=== PATIENT | male | born 1980 | race Caucasian/White ===

== ENCOUNTER → 2021-01-19 | Outpatient (CLI) | payer BC ==
--- NOTE | 2021-01-19 10:02 | Diagnostic Imaging Report ---
INDICATION: Pain. 2 views were obtained. FINDINGS: The alignment is normal. No fracture or dislocation. Left lung is clear. Soft tissues are unremarkable. IMPRESSION: No focal abnormality left shoulder. Dictated by: Dictated on workstation # [id number]
--- NOTE | 2021-01-19 10:02 | Diagnostic Imaging Report ---
INDICATION: Tingling in left arm. 3 views were obtained. FINDINGS: The alignment of the cervical spine is normal. The vertebral body heights well-maintained. Mild lower cervical degenerative disc disease. No fracture or traumatic subluxation. Odontoids intact. Lateral masses well aligned. Prevertebral soft tissues are within normal limits. IMPRESSION: Mild lower cervical spondylosis, otherwise unremarkable. Dictated by: Dictated on workstation # [id number]
== END ==
LOC: RAD FS 09:10
PROVIDERS: ATTEND Nurse Practitioner Family
DX: M47.812 Spondylosis without myelopathy or radiculopathy, cervical region (principal); M62.838 Other muscle spasm; Z87.828 Personal history of other (healed) physical injury and trauma; Z87.81 Personal history of (healed) traumatic fracture
CPT/HCPCS: 72040; 73030

== ENCOUNTER 2021-07-23 09:00 | Emergency (ER) | payer BC ==
[~2021-07-23] VITALS: Ht 177 cm; Wt 102.0 kg
[2021-07-23 09:37] LABS: HEMATOCRIT 42 % (40-54); HEMOGLOBIN 14.3 g/dL (13.3-17.7); MEAN CORPUSCULAR HEMOGLOBIN 32 pg (25-34); MEAN CORPUSCULAR HGB CONC 34 g/dL (32-36); MEAN CORPUSCULAR VOLUME 93 fL (80-99); WHITE BLOOD COUNT 6.1 10^3/uL (4.3-11.0)
[2021-07-23 09:38] LABS: BASOPHILS % (AUTO) 0 % (0-10); EOSINOPHILS % (AUTO) 0 % (0-10); LYMPHOCYTES # (AUTO) 0.8 X 10^3 (1.0-4.0); LYMPHOCYTES % (AUTO) 13 % (12-44); MEAN PLATELET VOLUME 11.3 fL (9.0-12.2); MONOCYTES # (AUTO) 0.2 X 10^3 (0.0-1.0); MONOCYTES % (AUTO) 3 % (0-12); NEUTROPHILS # (AUTO) 5.1 X 10^3 (1.8-7.8); NEUTROPHILS % (AUTO) 83 % (42-75); PLATELET COUNT 121 10^3/uL (130-400)
--- NOTE | 2021-07-23 09:41 | ED Cough/URI ---
General Chief Complaint: COVID19 Suspect/Confirmed Stated Complaint: SOB; COVID+ History of Present Illness Date Seen by Provider: Jul 23, 2021 Time Seen by Provider: 09:10 Initial Comments 4-year-old male presents with shortness of air. Recently diagnosed with COVID- 19 for symptoms that began 4 days ago. Patient primarily with a cough and some shortness of air. His oxygen saturations he states drop on his home monitoring when he is at rest or coughing or lying down. When up and awake states they are in the low 90s. Patient without any significant past medical history. Saw his PCP recently started on steroids as well as azithromycin. Yesterday received MONOCLONOL AB treatment Allergies and Home Medications Allergies Coded Allergies: No Known Drug Allergies (Unverified , 07/23/21) Patient Home Medication List Home Medication List Reviewed: Yes Colchicine (Colchicine) 0.6 Mg Tablet, 0.6 MG PO BID Prescribed by: TIMMY SHEFFIELD on 07/23/21 1006 Fluticasone Propionate (Flovent Hfa 220 mcg) 1 Ea Aero, 2 EA IH BID Prescribed by: TIMMY SHEFFIELD on 07/23/21 1006 Prednisone (Prednisone) 50 Mg Tab, 50 MG PO DAILY Prescribed by: TIMMY LOZASTSARAH on 07/23/21 1006 Review of Systems Review of Systems Constitutional: No chills, No fever; malaise EENTM: nose congestion; No ear pain, No hoarseness Respiratory: cough, short of breath; No wheezing Cardiovascular: No chest pain, No edema, No palpitations Gastrointestinal: No abdominal pain, No nausea, No vomiting Musculoskeletal: No joint swelling, No muscle pain Skin: No change in color, No rash Psychiatric/Neurological: Denies Headache, Denies Weakness Past Mnnajya-Stkaay-Tfkgzo Hx Patient Social History Tobacco Use?: No Use of E-Cig and/or Vaping dev: No Substance use?: No Alcohol Use?: Yes Alcohol type: Beer Alcohol Frequency: Once in a while Pt feels they are or have been: No Physical Exam Vital Signs - First Documented 07/23/21 09:12 Temp 36.2 Pulse 97 Resp 18 B/P (MAP) 134/76 (95) Pulse Ox 91 O2 Delivery Room Air Capillary Refill : Height: '" Weight: lbs. oz. kg; BMI Method: General Appearance: WD/WN, no apparent distress HEENT: PERRL/EOMI, normal ENT inspection Respiratory: chest non-tender, lungs clear, normal breath sounds, no accessory muscle use Cardiovascular: regular rate, rhythm, no edema, no JVD Gastrointestinal: non tender, soft Extremities: non-tender, normal inspection Neurologic/Psychiatric: alert, oriented x 3 Skin: normal color, warm/dry Focused Exam Lactate Level 07/23/21 09:24: Lactic Acid Level 0.99 Lactic Acid Level Laboratory Tests Test 07/23/21 09:24 Lactic Acid Level 0.99 MMOL/L (0.50-2.00) Progress/Results/Core Measures Suspected Sepsis SIRS Temperature: Pulse: Respiratory Rate: Laboratory Tests 07/23/21 09:24: White Blood Count 6.1 Blood Pressure / Mean: 07/23/21 09:24: Lactic Acid Level 0.99 Laboratory Tests 07/23/21 09:24: Creatinine 1.04, Platelet Count 121L, Total Bilirubin 0.5 Results/Orders Lab Results Laboratory Tests Test 07/23/21 09:24 Range/Units White Blood Count 6.1 4.3-11.0 10^3/uL Red Blood Count 4.51 4.30-5.52 10^6/uL Hemoglobin 14.3 13.3-17.7 g/dL Hematocrit 42 40-54 % Mean Corpuscular Volume 93 80-99 fL Mean Corpuscular Hemoglobin 32 25-34 pg Mean Corpuscular Hemoglobin Concent 34 32-36 g/dL Red Cell Distribution Width 13.3 10.0-14.5 % Platelet Count 121 L 130-400 10^3/uL Mean Platelet Volume 11.3 9.0-12.2 fL Immature Granulocyte % (Auto) 1 % Neutrophils (%) (Auto) 83 H 42-75 % Lymphocytes (%) (Auto) 13 12-44 % Monocytes (%) (Auto) 3 0-12 % Eosinophils (%) (Auto) 0 0-10 % Basophils (%) (Auto) 0 0-10 % Neutrophils # (Auto) 5.1 1.8-7.8 X 10^3 Lymphocytes # (Auto) 0.8 L 1.0-4.0 X 10^3 Monocytes # (Auto) 0.2 0.0-1.0 X 10^3 Eosinophils # (Auto) 0.0 0.0-0.3 10^3/uL Basophils # (Auto) 0.0 0.0-0.1 10^3/uL Immature Granulocyte # (Auto) 0.0 0.0-0.1 10^3/uL Percent Immature Platelet Fraction 5.2 0.0-7.6 % Sodium Level 135 135-145 MMOL/L Potassium Level 3.8 3.6-5.0 MMOL/L Chloride Level 99 98-107 MMOL/L Carbon Dioxide Level 25 21-32 MMOL/L Anion Gap 11 5-14 MMOL/L Blood Urea Nitrogen 18 7-18 MG/DL Creatinine 1.04 0.60-1.30 MG/DL Estimat Glomerular Filtration Rate 79 BUN/Creatinine Ratio 17 Glucose Level 104 70-105 MG/DL Lactic Acid Level 0.99 0.50-2.00 MMOL/L Calcium Level 8.5 8.5-10.1 MG/DL Corrected Calcium 8.9 8.5-10.1 MG/DL Total Bilirubin 0.5 0.1-1.0 MG/DL Aspartate Amino Transf (AST/SGOT) 44 H 5-34 U/L Alanine Aminotransferase (ALT/SGPT) 29 0-55 U/L Alkaline Phosphatase 60 40-136 U/L C-Reactive Protein 6.91 H <0.50 MG/DL Total Protein 6.5 6.4-8.2 GM/DL Albumin 3.5 3.2-4.5 GM/DL My Orders Orders - ROVENSTINE,TIMMY L DO Ed Iv/Invasive Line Start (07/23/21 09:21) Cbc With Automated Diff (07/23/21 09:21) Comprehensive Metabolic Panel (07/23/21 09:21) Crp Fs (07/23/21 09:21) Chest 1 View Ap/Pa Only (07/23/21 09:21) Ekg Tracing (07/23/21 09:21) Lactic Acid Analyzer (07/23/21 09:21) Albuterol/Ipra Inhalation Soln (Duoneb I (07/23/21 09:50) Albuterol/Ipra Inhalation Soln (Duoneb I (07/23/21 10:00) Methylprednisolone Sod Succ (Solu-Medrol (07/23/21 10:00) Svn Small Volume Nebulizer (07/23/21 09:54) Medications Given in ED Current Medications Medications Dose Ordered Sig/Jabari Route Start Time Stop Time Status Last Admin Dose Admin Albuterol/ Ipratropium 3 ml ONCE ONCE INH 07/23/21 10:00 07/23/21 10:01 DC 07/23/21 09:55 3 ML Methylprednisolone Sodium Succinate 125 mg ONCE ONCE IVP 07/23/21 10:00 07/23/21 10:01 DC 07/23/21 09:57 125 MG Vital Signs/I&O 07/23/21 07/23/21 09:12 09:12 Temp 36.2 Pulse 97 Resp 18 B/P (MAP) 134/76 (95) Pulse Ox 91 O2 Delivery Room Air Room Air Capillary Refill : ECG Initial ECG Impression Date: Jul 23, 2021 Initial ECG Impression Time: 09:15 Initial ECG Rate: 90 Initial ECG Rhythm: Normal Sinus Initial ECG Intervals: Normal Initial ECG Impression: Normal Diagnostic Imaging Diagonstic Imaging: Xray Plain Films/CT/US/NM/MRI: chest Comments Date of Exam:07/23/21 CHEST 1 VIEW AP/PA ONLY Clinical indication: Patient with shortness of breath. Patient is Covid positive. Exam: Portable chest x-ray upright view. Comparisons: None. Findings: Lungs/pleura: There are patchy areas of consolidation throughout both lungs. There is no pneumothorax. There is no pleural effusion. Mediastinum: Unremarkable. Pulmonary vasculature: Unremarkable. Heart: Unremarkable. Bones/extrathoracic soft tissue: Unremarkable. Impression: Diffuse bilateral lung infiltrates concerning for pneumonia. Dictated on workstation # [id number] Dict: 07/23/2134 Trans: 07/23/21 0940 REPLACED BY [facility] [id number] Interpreted by: LISSET HORN MD Electronically signed by: Departure Impression Primary Impression: Pneumonia due to COVID-19 virus Disposition: 01 HOME, SELF-CARE Condition: Stable Departure-Patient Inst. Decision time for Depature: 09:44 Referrals: FILIBERTO HINDS MD (PCP/Family) Primary Care Physician Patient Instructions: COVID-19 Overview Add. Discharge Instructions: follow up with Dr Hinds in 3 to 4 days, ER sooner if worse. Take the following: for 1 month Vitamin D - 5,000 iu daily Vitamin C - 1,000mg 3 times daily Zinc 100mg daily Melatonin 10mg at bedtime and if no contraindication, take a full aspirin for the next 30 days All discharge instructions reviewed with patient and/or family. Voiced understanding. Scripts Colchicine (Colchicine) 0.6 Mg Tablet 0.6 MG PO BID, #20 TAB Prov: TIMMY SHEFFIELD DO 07/23/21 Prednisone (Prednisone) 50 Mg Tab 50 MG PO DAILY, #8 TAB take one po @ 1400 today, take one po 0800 & 1400 tomorrow, then take one po daily....tat Prov: TIMMY SHEFFIELD DO 07/23/21 Fluticasone Propionate (Flovent Hfa 220 mcg) 1 Ea Aero 2 EA IH BID, #1 EA Prov: TIMMY SHEFFIELD DO 07/23/21 TIMMY SHEFFIELD DO Jul 23, 2021 09:41
[2021-07-23] MEDS ORDERED: RT-ALBUTEROL/IPRATROPIUM 3 ML (DUONEB) VIAL ONE (09:50)
[2021-07-23 09:51] LABS: BILIRUBIN,TOTAL 0.5 MG/DL (0.1-1.0); CALCIUM 8.5 MG/DL (8.5-10.1); CREATININE SERUM 1.04 MG/DL (0.60-1.30); POTASSIUM 3.8 MMOL/L (3.6-5.0); TOTAL PROTEIN 6.5 GM/DL (6.4-8.2)
[2021-07-23 09:52] LABS: ALBUMIN 3.5 GM/DL (3.2-4.5)
[2021-07-23] MEDS ORDERED: RT-ALBUTEROL/IPRATROPIUM 3 ML (DUONEB) VIAL INH ONE (10:00)
[2021-07-23] MEDS ORDERED: methylPREDNISolone 125 MG (Solu-MEDROL) VIAL IVP ONE (10:00)
[2021-07-23] MEDS ORDERED: COLC0.6T59 PO (10:06)
[2021-07-23] MEDS ORDERED: FLT22013 IH (10:06)
[2021-07-23] MEDS ORDERED: PRD50T PO (10:06)
[2021-07-23 10:45] VITALS: BP 138/62
== END 2021-07-23 10:46 | disposition home or self-care (01) ==
LOC: EDUNIT# 09:00 → ER FS 09:02
DX: U07.1 COVID-19 (principal); J12.82 Pneumonia due to coronavirus disease 2019
CPT/HCPCS: 36415; 71045; 80053; 83605; 85025; 86141; 93005

== ENCOUNTER → 2021-07-31 | Outpatient (CLI) | payer BC ==
[~2021-07-31] MED LIST: COLC0.6T59 PO; FLT22013 IH; PRD50T PO
--- NOTE | 2021-07-31 11:20 | Diagnostic Imaging Report ---
INDICATION: Fever, history of Covid cough. EXAMINATION: 2 view chest 07/31/2021. COMPARISON: 07/23/2021 FINDINGS: 2 views of the chest Diffuse scattered airspace opacity seen throughout both lungs worsened since previous examination. No pneumothorax or effusions. Heart unremarkable.. Pulmonary vasculature prominent. No acute osseous abnormality. IMPRESSION: 1. Worsening diffuse bilateral infiltrates. Dictated by: Dictated on workstation # [id number]
== END ==
LOC: RAD FS 10:38
PROVIDERS: ATTEND Nurse Practitioner Family
DX: R91.8 Other nonspecific abnormal finding of lung field (principal); R50.81 Fever presenting with conditions classified elsewhere; R05 Cough; Z86.16 Personal history of COVID-19
CPT/HCPCS: 71046

== ENCOUNTER 2022-05-29 00:02 | Emergency (ER) | payer BC ==
[~2022-05-29] VITALS: Ht 155 cm; Wt 97.0 kg
--- NOTE | 2022-05-29 00:11 | ED General ---
General Stated Complaint: LACERATION History of Present Illness Date Seen by Provider: May 29, 2022 Time Seen by Provider: 00:11 Initial Comments 41-year-old male is here with complaints of right buttock puncture wound, which occurred accidentally when he hit against a sharp metal point of his hay mower in the evening. Denies sensory loss. Patient is able to ambulate. Allergies and Home Medications Allergies Coded Allergies: No Known Drug Allergies (Unverified , 07/23/21) Patient Home Medication List Home Medication List Reviewed: Yes Colchicine (Colchicine) 0.6 Mg Tablet, 0.6 MG PO BID Prescribed by: TIMMY SHEFFIELD on 07/23/21 1006 Fluticasone Propionate (Flovent Hfa 220 mcg) 1 Ea Aero, 2 EA IH BID Prescribed by: TIMMY HSEFFIELD on 07/23/21 1006 Prednisone (Prednisone) 50 Mg Tab, 50 MG PO DAILY Prescribed by: TIMMY SHEFFIELD on 07/23/21 1006 Review of Systems Review of Systems Constitutional: no symptoms reported EENTM: no symptoms reported Respiratory: no symptoms reported Cardiovascular: no symptoms reported Gastrointestinal: no symptoms reported Genitourinary: no symptoms reported Musculoskeletal: no symptoms reported Skin: other (buttock puncture wound) Psychiatric/Neurological: No Symptoms Reported Hematologic/Lymphatic: No Symptoms Reported Immunological/Allergic: no symptoms reported Physical Exam Vital Signs Vital Signs - First Documented 05/29/22 00:11 Temp 36.6 Pulse 109 Resp 18 B/P (MAP) 152/102 (119) Pulse Ox 94 O2 Delivery Room Air Capillary Refill : Height, Weight, BMI Height: '" Weight: lbs. oz. kg; 32.00 BMI Method: General Appearance: No Apparent Distress, WD/WN HEENT: PERRL/EOMI Neck: Full Range of Motion Genital/Rectal: Other (Right buttock, deep puncture wound, approximately 2.5cm diameter, nothing to suture, moderate bleeding. Sensation intact. No foreign bodies. Surrounding abrasion and ecchymosis present. ) Back: Normal Inspection Extremity: Normal Inspection, Normal Range of Motion Neurologic/Psychiatric: Alert, Oriented x3 Progress/Results/Core Measures Suspected Sepsis SIRS Temperature: Pulse: Respiratory Rate: Blood Pressure / Mean: Results/Orders My Orders Orders - PÉREZ LÓPEZ MD Lidocaine/Epi 2% 1:100,000 (Xylocaine/Ep (05/29/22 00:30) Lidocaine/Epi Mpf 2% 1:200,000 (Xylocain (05/29/22 00:21) Vital Signs/I&O 05/29/22 00:11 Temp 36.6 Pulse 109 Resp 18 B/P (MAP) 152/102 (119) Pulse Ox 94 O2 Delivery Room Air Capillary Refill : Progress Note : Progress Note 1. PUNCTURE WOUND RIGHT BUTTOCK: - Wound irrigated with NS after local block with Lido with epi, 5ml. Antibiotic ointment and dressing placed - Tdap and 1st tab Augmentin given in ER - Prescription for Augmentin bid for 7 days - Follow up with PCP in 5 to 7 days for wound check. Departure Impression Primary Impression: Puncture wound of right buttock without foreign body Qualified Codes: S31.813A - Puncture wound without foreign body of right buttock, initial encounter Disposition: HOME, SELF-CARE Condition: Improved Departure-Patient Inst. Referrals: FILIBERTO HINDS MD (PCP/Family) Primary Care Physician Patient Instructions: Taking Care of Cuts, Scrapes, and Puncture Wounds Add. Discharge Instructions: - Prescription for Augmentin bid for 7 days - Follow up with PCP in 5 to 7 days for wound check. Scripts Amoxicillin/Potassium Clav (Amoxicillin-Clav ER 1,000-62.5) 1,000 Mg-62.5 Mg Tab.er.12h 1 EACH PO BID for 7 Days, #14 TAB Prov: PÉREZ LÓPEZ MD 05/29/22 PÉREZ LÓPEZ MD May 29, 2022 00:11
[2022-05-29] MEDS ORDERED: LIDOCAINE/EPI 2% 1:200,00 (XYLOCAINE) 20 ML VIAL ONE (00:21)
[2022-05-29] MEDS ORDERED: LIDOCAINE/EPI 2% 1:100,00 (XYLOCAINE) 20 ML VIAL INJ ONE (00:30)
[2022-05-29] MEDS ORDERED: AUGMENTIN 875 MG TAB (AMOXICILLIN/CLAVULANATE) PO STA (00:53)
[2022-05-29] MEDS ORDERED: TETANUS,DIPTH,PERTUSS P/F (BOOSTRIX) 0.5 ML VIAL IM ONE (01:00)
[2022-05-29] MEDS ORDERED: AMOX1TAB39 PO (01:04)
[2022-05-29 01:15] VITALS: BP 148/96
== END 2022-05-29 01:15 | disposition home or self-care (01) ==
LOC: EDUNIT# 00:02 → ER FS 00:04
DX: S31.813A Puncture wound without foreign body of right buttock, initial encounter (principal); W22.8XXA Striking against or struck by other objects, initial encounter
CPT/HCPCS: 90715; 99284